=== PATIENT | female | born 1965 | race Caucasian/White ===

== ENCOUNTER 2019-06-21 20:20 | Inpatient (IN) | payer MEDICAID ==
[~2019-06-21] VITALS: Ht 175.3 cm; Wt 86.4 kg
[~2019-06-21 20:20] MED LIST: ALBU8.5H8 INH; ASPI-1265 PO; BUDE10.22 INH; CARV6.253 PO; DOXY-224 PO; FURO-150 PO; LACT1CAP26 PO; LISI10TA4 PO; POTA10TA36 PO
[2019-06-21] MEDS ORDERED: dexamethasone 4mg tablet PO ONE (20:45)
[2019-06-21] MEDS ORDERED: ipratropium/albuterol 3ml nebule NEB ONE (20:45)
[2019-06-21 20:58] LABS: BASOPHILS # (AUTO) 0.1 X10'3 (0-0.2); BASOPHILS % (AUTO) 1.3 % (0-1); EOSINOPHILS # (AUTO) 0.3 X10'3 (0-0.9); EOSINOPHILS % (AUTO) 2.9 % (0-6); HEMATOCRIT 46.3 % (35.0-45.0); HEMOGLOBIN 15.2 g/dl (12.0-16.0); LYMPHOCYTES # (AUTO) 2.3 X10'3 (1.1-4.8); MEAN CORPUSCULAR HEMOGLOBIN 27.5 PG (27.0-31.0); MEAN CORPUSCULAR HGB CONC 32.9 g/dL (33.0-36.5); MEAN CORPUSCULAR VOLUME 83.6 FL (78-98); MEAN PLATELET VOLUME 8.8 FL (7.4-10.4); MONOCYTES # (AUTO) 0.9 X10'3 (0-0.9); MONOCYTES % (AUTO) 9.2 % (2-12); NEUTROPHILS # (AUTO) 6.3 X10'3 (1.8-7.7); NEUTROPHILS % (AUTO) 63.6 % (42-75); PLATELET COUNT 164 X10'3 (140-440); RED BLOOD COUNT 5.53 X10'6 (4.20-5.60); WHITE BLOOD COUNT 9.9 X10'3 (4.5-11.0)
[2019-06-21] MEDS ORDERED: iohexol 350MG/ML 100ml bottle IV ONE (21:14)
[2019-06-21 21:15] LABS: ALANINE AMINOTRANSFERASE 29 U/L (12-78); ALBUMIN 3.3 G/DL (3.4-5.0); ALKALINE PHOSPHATASE 79 IU/L (46-116); ANION GAP 10 (8-16); ASPARTATE AMINO TRANSFERASE 20 U/L (10-37); BILIRUBIN,TOTAL 0.8 MG/DL (0.1-1.0); BLOOD UREA NITROGEN 27 MG/DL (7-18); BUN/CREATININE RATIO 18.5 (6.6-38.0); CALCIUM 8.7 MG/DL (8.5-10.1); CHLORIDE 107 MMOL/L (99-107); CREATININE 1.46 MG/DL (0.40-0.90); GLUCOSE 117 MG/DL (70-104); SODIUM 140 MMOL/L (135-145); TOTAL CARBON DIOXIDE 23.3 MMOL/L (24-32); TOTAL PROTEIN 6.6 G/DL (6.4-8.2); TROPONIN I < 0.04 NG/ML (0.0-0.05); eGFR 37 ML/MIN
--- NOTE | 2019-06-21 21:15 | NUR ---
Patient informed me she has numbness and weakness in right arm and right leg, and has had difficulty walking today. 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 MD informed, level 2 stroke alert called, patient out to CT
[2019-06-21 21:17] LABS: POTASSIUM 4.1 MMOL/L (3.5-5.1)
[2019-06-21] MEDS ORDERED: aspirin 325mg tablet PO ONE ×2 (21:50→23:45)
[2019-06-21 22:09] LABS: PARTIAL THROMBOPLASTIN TIME 26 SECONDS (22-32)
[2019-06-22] MEDS ORDERED: ASPI-1265 PO (00:16)
[2019-06-22] MEDS ORDERED: POTA10TA15 PO (00:16)
[2019-06-22] MEDS ORDERED: NAPR-1154 PO (00:16)
[2019-06-22] MEDS ORDERED: OXYC20TA55 PO (00:16)
[2019-06-22] MEDS ORDERED: FURO-150 PO (00:16)
[2019-06-22] MEDS ORDERED: LACT1CAP26 PO (00:16)
[2019-06-22] MEDS ORDERED: BUDE10.22 INH (00:16)
[2019-06-22] MEDS ORDERED: LISI-604 PO (00:16)
[2019-06-22] MEDS ORDERED: CARV6.253 PO (00:16)
[2019-06-22] MEDS ORDERED: ALBU8.5H8 INH (00:16)
[2019-06-22] MEDS ORDERED: acetaminophen 325mg tablet PO PRN (01:25)
[2019-06-22] MEDS ORDERED: magnesium 4gm in 100ml NS 100 ML IV PRN (01:25)
[2019-06-22] MEDS ORDERED: magnesium 2GM in 50ml NS 50 ML IV PRN (01:25)
[2019-06-22] MEDS ORDERED: ondansetron/PF 4mg/2ml inj IV PRN (01:25)
[2019-06-22] MEDS ORDERED: potassium Cl 20 mEq SR tablet PO PRN ×2 (01:25)
[2019-06-22] MEDS ORDERED: mag hydrox/Alum hydrox/simeth 30ml oral suspension PO PRN (01:25)
[2019-06-22] MEDS ORDERED: magnesium Cl slow-release 64mg tablet PO PRN (01:25)
[2019-06-22] MEDS ORDERED: docusate sod 100mg capsule PO PRN (01:25)
[2019-06-22] MEDS ORDERED: potassium CL 10mEq/100ml bag 100 ML IV PRN ×2 (01:25)
[2019-06-22] MEDS ORDERED: oxyCODONE IR 5mg (immed. release) tablet PO PRN (01:55)
[2019-06-22] MEDS ORDERED: OXYC-658 PO (01:56)
[2019-06-22 03:00] VITALS: BP 142/92
[2019-06-22] MEDS ORDERED: albuterol 2.5 MG/3 ML nebule NEB SCH (03:00)
[2019-06-22] MEDS: ipratropium/albuterol 3ml nebule NEB SCH ×6 (03:05→23:46)
[2019-06-22 06:00] VITALS: BP 123/86
--- NOTE | 2019-06-22 06:00 | NUR ---
Patient in room PCU 3028. I have received report from Alvarado ROSADO and had the opportunity to ask questions and assume patient care.
[2019-06-22] MEDS: LORazepam 0.5 MG tablet PO PRN (07:16)
[2019-06-22] MEDS: carvedilol 6.25mg tablet PO SCH ×2 (07:18→19:15)
[2019-06-22] MEDS: furosemide 20MG tablet PO SCH (07:18)
[2019-06-22] MEDS: lisinopril 10 MG tablet PO SCH (07:18)
--- NOTE | 2019-06-22 07:30 | NUR ---
Room 3028B Sadia Toscano c/o right leg spasms, Ativan 0.5mg given PO, no labs ordered today, please advise Celena [phone], awaiting call back
[2019-06-22] MEDS: budesonide 0.5mg/2ml UD nebule IH SCH ×2 (07:41→19:42)
[2019-06-22] MEDS ORDERED: budesonide 0.5mg/2ml UD nebule IH SCH (08:00)
--- NOTE | 2019-06-22 08:27 | NUR ---
Second page to Dr Tompkins re:Room 3020B Sadia Toscano Ativan ineffective, c/o cramping in R lateral ankle, crying please call and advise Celena [phone]
[2019-06-22 11:00] VITALS: BP 111/69
--- NOTE | 2019-06-22 14:55 | NUR ---
Page to plc technician re: Room 6773S Sadia Toscano pt has life vest on, instructions? Addendum: 06/22/19 at 1540 by Celena Basilio RN Room 5620V Sadia Toscano per Dr Turner oropeza to do complete MRI without life vest
[2019-06-22 15:00] VITALS: BP 161/99
--- NOTE | 2019-06-22 15:10 | NUR ---
Page to Dr Tompkins re: Room 7473B Sadia Toscano, patient is wearing life vest, per MRI it will have to come off at least 10 minutes, please advise Celena Campos Addendum: 06/22/19 at 1540 by Celena Basilio RN Room 4231Z Sadia Toscano per Dr Turner oropeza to do complete MRI without life vest
--- NOTE | 2019-06-22 16:00 | NUR ---
Social service staff reports patient has turner and prescription medication on her person. technical services assistant staff retrieved turner to take to security for safe storage. 2 prescription inhalers and 56 tablets of Oxycodone counted by myself and charge nurse Lucrecia ROSADO and taken to pharmacy for storage.
[2019-06-22 18:00] VITALS: BP 141/89
--- NOTE | 2019-06-22 18:00 | NUR ---
Problems reprioritized. Patient report given, questions answered & plan of care reviewed with Josephine ROSADO/Sujatha ROSADO.
[2019-06-22] MEDS: oxyCODONE IR 5mg (immed. release) tablet PO PRN (19:03)
[2019-06-22] MEDS: K and/or MAG REPLACEMENT MC SCH (19:39)
[2019-06-22 22:00] VITALS: BP 106/64
[2019-06-23] MEDS: LORazepam 0.5 MG tablet PO PRN (00:09)
--- NOTE | 2019-06-23 00:22 | NUR ---
I reviewed the patient's chart for stroke core measure and noted that patient needs an antiplatelet ordered. She did receive asa in the ER but nothing is ordered as a daily medicine for antiplatelet and since the mri reading shows acute infarct. I discussed this with the charge nurse; Giovanni and the pt's nurse Josephine ROSADO.
[2019-06-23 02:00] VITALS: BP 118/73
[2019-06-23] MEDS: ipratropium/albuterol 3ml nebule NEB SCH ×6 (03:15→23:02)
--- NOTE | 2019-06-23 05:57 | NUR ---
[place] Medication Administration: For this medication-pass time frame, all medication were reviewed, dispensed, administered and documented per hospital policy by Torsten ROSADO. [place] documentation: I have reviewed all interventions, assessments performed and documented by Torsten ROSADO.
[2019-06-23 06:12] LABS: BASOPHILS # (AUTO) 0.1 X10'3 (0-0.2); BASOPHILS % (AUTO) 0.4 % (0-1); EOSINOPHILS % (AUTO) 0.3 % (0-6); HEMATOCRIT 44.2 % (35.0-45.0); HEMOGLOBIN 14.2 g/dl (12.0-16.0); LYMPHOCYTES # (AUTO) 1.7 X10'3 (1.1-4.8); MEAN CORPUSCULAR HEMOGLOBIN 27.4 PG (27.0-31.0); MEAN CORPUSCULAR HGB CONC 32.1 g/dL (33.0-36.5); MEAN CORPUSCULAR VOLUME 85.4 FL (78-98); MEAN PLATELET VOLUME 9.1 FL (7.4-10.4); MONOCYTES # (AUTO) 1.1 X10'3 (0-0.9); MONOCYTES % (AUTO) 7.2 % (2-12); NEUTROPHILS # (AUTO) 12.4 X10'3 (1.8-7.7); NEUTROPHILS % (AUTO) 81.1 % (42-75); PLATELET COUNT 154 X10'3 (140-440); RED BLOOD COUNT 5.18 X10'6 (4.20-5.60); RED CELL DISTRIBUTION WIDTH 16.7 % (11.5-14.5); WHITE BLOOD COUNT 15.3 X10'3 (4.5-11.0)
[2019-06-23 06:34] LABS: ALANINE AMINOTRANSFERASE 24 U/L (12-78); ALBUMIN/GLOBULIN RATIO 0.9 (1.1-1.5); ALKALINE PHOSPHATASE 69 IU/L (46-116); ANION GAP 10 (8-16); ASPARTATE AMINO TRANSFERASE 18 U/L (10-37); BILIRUBIN,TOTAL 0.5 MG/DL (0.1-1.0); BLOOD UREA NITROGEN 30 MG/DL (7-18); BUN/CREATININE RATIO 21.3 (6.6-38.0); CALCIUM 8.7 MG/DL (8.5-10.1); CHLORIDE 103 MMOL/L (99-107); CHOL/HDL RATIO 3.5 (0.00-4.99); CHOLESTEROL 115 MG/DL (0-200); CREATININE 1.41 MG/DL (0.40-0.90); GLUCOSE 125 MG/DL (70-104); HDL CHOLESTEROL 33 MG/DL (35-60); LDL CHOLESTEROL 75 MG/DL (50-100); MAGNESIUM 1.9 MG/DL (1.5-2.4); POTASSIUM 4.7 MMOL/L (3.5-5.1); SODIUM 137 MMOL/L (135-145); TOTAL CARBON DIOXIDE 24.1 MMOL/L (24-32); TOTAL PROTEIN 6.2 G/DL (6.4-8.2); TRIGLYCERIDES 79 MG/DL (20-135); eGFR 39 ML/MIN
--- NOTE | 2019-06-23 06:34 | NUR ---
Problems reprioritized. Patient report given, questions answered & plan of care reviewed with Sol ROSADO.
[2019-06-23 07:00] VITALS: BP 141/94
--- NOTE | 2019-06-23 07:04 | NUR ---
Patient in room PCU 3028. I have received report from ALONZO Burton and had the opportunity to ask questions and assume patient care.
[2019-06-23] MEDS: budesonide 0.5mg/2ml UD nebule IH SCH ×2 (07:11→19:04)
[2019-06-23] MEDS: K and/or MAG REPLACEMENT MC SCH (08:00)
--- NOTE | 2019-06-23 08:21 | NUR ---
Problems reprioritized. Patient report given, questions answered & plan of care reviewed with ALONZO Dallas.
--- NOTE | 2019-06-23 08:21 | NUR ---
Patient in room PCU 3028. I have received report from Sol ROSADO and had the opportunity to ask questions and assume patient care.
[2019-06-23] MEDS ORDERED: aspirin 325mg tablet PO ONE (08:45)
[2019-06-23] MEDS: lisinopril 10 MG tablet PO SCH (10:01)
[2019-06-23] MEDS: carvedilol 6.25mg tablet PO SCH ×2 (10:01→19:18)
[2019-06-23] MEDS: furosemide 20MG tablet PO SCH (10:01)
[2019-06-23 12:00] VITALS: BP 129/78
--- NOTE | 2019-06-23 13:46 | NUR ---
Spoke with Dr Bowles regarding ordering a statin. Order received.
[2019-06-23 16:00] VITALS: BP 120/81
--- NOTE | 2019-06-23 16:30 | NUR ---
Page to Dr Tompkins re: Room 302B Sadia Ruffford 6 beat run of V-tach, asymptomatic up at bedside bathing, please advise Celena [phone]
[2019-06-23 18:00] VITALS: BP_SYST 144; BP_SYST 184; BP_DIAS 78; BP_DIAS 93
--- NOTE | 2019-06-23 18:00 | NUR ---
Problems reprioritized. Patient report given, questions answered & plan of care reviewed with Josephine ROSADO/Sujatha ROSADO.
--- NOTE | 2019-06-23 18:25 | NUR ---
Patient in room PCU 3028B. I have received report from ALONZO Dallas and had the opportunity to ask questions and assume patient care. Will continue to monitor
[2019-06-23] MEDS: oxyCODONE IR 5mg (immed. release) tablet PO PRN (19:19)
[2019-06-23] MEDS: atorvastatin 20mg tablet PO SCH (21:10)
[2019-06-23 22:00] VITALS: BP 122/68
[2019-06-24 02:00] VITALS: BP 141/72
[2019-06-24] MEDS: ipratropium/albuterol 3ml nebule NEB SCH ×6 (02:50→23:15)
[2019-06-24 06:00] VITALS: BP 134/84
--- NOTE | 2019-06-24 06:00 | NUR ---
Patient in room PCU 3028. I have received report from Josephine ROSADO and had the opportunity to ask questions and assume patient care.
--- NOTE | 2019-06-24 06:23 | NUR ---
Problems reprioritized. Patient report given, questions answered & plan of care reviewed with Maddie RN.
[2019-06-24 06:44] LABS: BASOPHILS # (AUTO) 0.1 X10'3 (0-0.2); EOSINOPHILS # (AUTO) 0.3 X10'3 (0-0.9); EOSINOPHILS % (AUTO) 3.2 % (0-6); HEMATOCRIT 43.6 % (35.0-45.0); HEMOGLOBIN 14.2 g/dl (12.0-16.0); LYMPHOCYTES # (AUTO) 2.3 X10'3 (1.1-4.8); LYMPHOCYTES % (AUTO) 23.8 % (21-51); MEAN CORPUSCULAR HEMOGLOBIN 27.4 PG (27.0-31.0); MEAN CORPUSCULAR HGB CONC 32.6 g/dL (33.0-36.5); MEAN CORPUSCULAR VOLUME 84.1 FL (78-98); MEAN PLATELET VOLUME 8.9 FL (7.4-10.4); MONOCYTES # (AUTO) 0.9 X10'3 (0-0.9); MONOCYTES % (AUTO) 8.8 % (2-12); NEUTROPHILS # (AUTO) 6.2 X10'3 (1.8-7.7); NEUTROPHILS % (AUTO) 63.2 % (42-75); PLATELET COUNT 155 X10'3 (140-440); RED BLOOD COUNT 5.18 X10'6 (4.20-5.60); RED CELL DISTRIBUTION WIDTH 16.5 % (11.5-14.5); WHITE BLOOD COUNT 9.8 X10'3 (4.5-11.0)
[2019-06-24 06:54] LABS: ALANINE AMINOTRANSFERASE 23 U/L (12-78); ALBUMIN 2.8 G/DL (3.4-5.0); ALBUMIN/GLOBULIN RATIO 0.9 (1.1-1.5); ALKALINE PHOSPHATASE 62 IU/L (46-116); ANION GAP 8 (8-16); ASPARTATE AMINO TRANSFERASE 10 U/L (10-37); BILIRUBIN,TOTAL 0.4 MG/DL (0.1-1.0); BLOOD UREA NITROGEN 32 MG/DL (7-18); BUN/CREATININE RATIO 27.4 (6.6-38.0); CALCIUM 8.5 MG/DL (8.5-10.1); CHLORIDE 106 MMOL/L (99-107); CREATININE 1.17 MG/DL (0.40-0.90); GLUCOSE 95 MG/DL (70-104); MAGNESIUM 1.9 MG/DL (1.5-2.4); POTASSIUM 4.2 MMOL/L (3.5-5.1); SODIUM 140 MMOL/L (135-145); TOTAL CARBON DIOXIDE 26.3 MMOL/L (24-32); TOTAL PROTEIN 5.9 G/DL (6.4-8.2); eGFR 48 ML/MIN
[2019-06-24] MEDS: budesonide 0.5mg/2ml UD nebule IH SCH ×2 (07:29→19:43)
[2019-06-24] MEDS: K and/or MAG REPLACEMENT MC SCH (08:00)
[2019-06-24] MEDS: citalopram 20mg tablet PO SCH (09:16)
[2019-06-24] MEDS: aspirin 325mg tablet PO SCH (09:16)
[2019-06-24] MEDS: carvedilol 6.25mg tablet PO SCH ×2 (09:18→20:29)
[2019-06-24] MEDS: furosemide 20MG tablet PO SCH (09:18)
[2019-06-24] MEDS: lisinopril 10 MG tablet PO SCH (09:18)
[2019-06-24 11:00] VITALS: BP 129/78
[2019-06-24 15:00] VITALS: BP 126/95
--- NOTE | 2019-06-24 16:40 | NUR ---
Page to Dr Tompkins re:Room 6370B Sadia Toscano had 7 beat run of V-tach, asymptomatic, please advise Celena [phone]
--- NOTE | 2019-06-24 18:54 | NUR ---
Problems reprioritized. Patient report given, questions answered & plan of care reviewed with Alvarado ROSADO.
--- NOTE | 2019-06-24 18:58 | NUR ---
Patient in room U 3025B. I have received report from ALONZO Dallas and had the opportunity to ask questions and assume patient care. Addendum: 06/24/19 at 1900 by Martinez Turner RN Patient in room U 3771B. I have received report from ALONZO Dallas and had the opportunity to ask questions and assume patient care.
[2019-06-24 19:00] VITALS: BP 139/93
[2019-06-24] MEDS: atorvastatin 20mg tablet PO SCH (20:29)
[2019-06-24] MEDS: oxyCODONE IR 5mg (immed. release) tablet PO PRN (20:30)
[2019-06-24 23:00] VITALS: BP 103/45
[2019-06-25] VITALS (7 sets, daily range): BP systolic 136–174; BP diastolic 72–105
[2019-06-25] MEDS: ipratropium/albuterol 3ml nebule NEB SCH ×6 (03:05→22:54)
--- NOTE | 2019-06-25 06:00 | NUR ---
Patient in room PCU 3028. I have received report from Alvarado ROSADO and had the opportunity to ask questions and assume patient care.
[2019-06-25 06:21] LABS: BASOPHILS # (AUTO) 0.1 X10'3 (0-0.2); BASOPHILS % (AUTO) 0.9 % (0-1); EOSINOPHILS # (AUTO) 0.5 X10'3 (0-0.9); EOSINOPHILS % (AUTO) 5.4 % (0-6); HEMATOCRIT 45.2 % (35.0-45.0); HEMOGLOBIN 14.6 g/dl (12.0-16.0); LYMPHOCYTES % (AUTO) 21.2 % (21-51); MEAN CORPUSCULAR HEMOGLOBIN 27.3 PG (27.0-31.0); MEAN CORPUSCULAR HGB CONC 32.4 g/dL (33.0-36.5); MEAN CORPUSCULAR VOLUME 84.1 FL (78-98); MEAN PLATELET VOLUME 8.8 FL (7.4-10.4); MONOCYTES # (AUTO) 0.9 X10'3 (0-0.9); MONOCYTES % (AUTO) 10.1 % (2-12); NEUTROPHILS # (AUTO) 5.8 X10'3 (1.8-7.7); NEUTROPHILS % (AUTO) 62.4 % (42-75); PLATELET COUNT 161 X10'3 (140-440); RED BLOOD COUNT 5.37 X10'6 (4.20-5.60); RED CELL DISTRIBUTION WIDTH 16.5 % (11.5-14.5); WHITE BLOOD COUNT 9.3 X10'3 (4.5-11.0)
[2019-06-25 06:23] LABS: ALANINE AMINOTRANSFERASE 24 U/L (12-78); ALBUMIN 2.9 G/DL (3.4-5.0); ALBUMIN/GLOBULIN RATIO 0.9 (1.1-1.5); ALKALINE PHOSPHATASE 70 IU/L (46-116); ANION GAP 9 (8-16); ASPARTATE AMINO TRANSFERASE 14 U/L (10-37); BILIRUBIN,TOTAL 0.5 MG/DL (0.1-1.0); BLOOD UREA NITROGEN 31 MG/DL (7-18); BUN/CREATININE RATIO 24.8 (6.6-38.0); CALCIUM 8.6 MG/DL (8.5-10.1); CHLORIDE 107 MMOL/L (99-107); CREATININE 1.25 MG/DL (0.40-0.90); GLUCOSE 115 MG/DL (70-104); MAGNESIUM 1.9 MG/DL (1.5-2.4); POTASSIUM 4.2 MMOL/L (3.5-5.1); SODIUM 142 MMOL/L (135-145); TOTAL CARBON DIOXIDE 26.1 MMOL/L (24-32); TOTAL PROTEIN 6.1 G/DL (6.4-8.2); eGFR 44 ML/MIN
[2019-06-25] MEDS: budesonide 0.5mg/2ml UD nebule IH SCH ×2 (07:43→18:40)
[2019-06-25] MEDS: K and/or MAG REPLACEMENT MC SCH (08:00)
[2019-06-25] MEDS: furosemide 20MG tablet PO SCH (08:47)
[2019-06-25] MEDS: citalopram 20mg tablet PO SCH (08:47)
[2019-06-25] MEDS: lisinopril 10 MG tablet PO SCH (08:47)
[2019-06-25] MEDS: aspirin 325mg tablet PO SCH (08:47)
[2019-06-25] MEDS: carvedilol 6.25mg tablet PO SCH ×2 (08:48→20:31)
--- NOTE | 2019-06-25 18:16 | NUR ---
Patient in room PCU 3028. I have received report from Celena ROSADO and had the opportunity to ask questions and assume patient care.
--- NOTE | 2019-06-25 18:21 | NUR ---
Problems reprioritized. Patient report given, questions answered & plan of care reviewed with Krysten ROSADO.
[2019-06-25] MEDS: atorvastatin 20mg tablet PO SCH (20:30)
[2019-06-25] MEDS: oxyCODONE IR 5mg (immed. release) tablet PO PRN (20:32)
[2019-06-26] MEDS: oxyCODONE IR 5mg (immed. release) tablet PO PRN ×3 (00:11→23:36)
[2019-06-26 02:00] VITALS: BP 146/94
[2019-06-26] MEDS: ipratropium/albuterol 3ml nebule NEB SCH ×6 (02:42→22:37)
[2019-06-26 04:47] LABS: BASOPHILS # (AUTO) 0.1 X10'3 (0-0.2); BASOPHILS % (AUTO) 0.6 % (0-1); EOSINOPHILS # (AUTO) 0.6 X10'3 (0-0.9); EOSINOPHILS % (AUTO) 6.2 % (0-6); HEMATOCRIT 44.6 % (35.0-45.0); HEMOGLOBIN 14.4 g/dl (12.0-16.0); LYMPHOCYTES % (AUTO) 22.3 % (21-51); MEAN CORPUSCULAR HEMOGLOBIN 27.4 PG (27.0-31.0); MEAN CORPUSCULAR HGB CONC 32.4 g/dL (33.0-36.5); MEAN CORPUSCULAR VOLUME 84.7 FL (78-98); MEAN PLATELET VOLUME 8.7 FL (7.4-10.4); NEUTROPHILS # (AUTO) 5.4 X10'3 (1.8-7.7); NEUTROPHILS % (AUTO) 59.9 % (42-75); PLATELET COUNT 148 X10'3 (140-440); RED BLOOD COUNT 5.26 X10'6 (4.20-5.60); RED CELL DISTRIBUTION WIDTH 16.3 % (11.5-14.5); WHITE BLOOD COUNT 9.1 X10'3 (4.5-11.0)
[2019-06-26 05:01] LABS: ALANINE AMINOTRANSFERASE 22 U/L (12-78); ALBUMIN 2.8 G/DL (3.4-5.0); ALBUMIN/GLOBULIN RATIO 0.9 (1.1-1.5); ALKALINE PHOSPHATASE 69 IU/L (46-116); ANION GAP 7 (8-16); ASPARTATE AMINO TRANSFERASE 17 U/L (10-37); BILIRUBIN,TOTAL 0.6 MG/DL (0.1-1.0); BLOOD UREA NITROGEN 26 MG/DL (7-18); BUN/CREATININE RATIO 18.6 (6.6-38.0); CALCIUM 8.6 MG/DL (8.5-10.1); CHLORIDE 105 MMOL/L (99-107); GLUCOSE 129 MG/DL (70-104); MAGNESIUM 1.8 MG/DL (1.5-2.4); POTASSIUM 4.2 MMOL/L (3.5-5.1); SODIUM 141 MMOL/L (135-145); TOTAL CARBON DIOXIDE 29.4 MMOL/L (24-32); TOTAL PROTEIN 5.9 G/DL (6.4-8.2); eGFR 39 ML/MIN
--- NOTE | 2019-06-26 06:11 | NUR ---
Problems reprioritized. Patient report given, questions answered & plan of care reviewed with Raymon ROSADO.
--- NOTE | 2019-06-26 06:11 | NUR ---
Patient in room PCU 3028. I have received report from Krysten ROSADO and had the opportunity to ask questions and assume patient care.
[2019-06-26 06:54] VITALS: BP 142/80
[2019-06-26] MEDS: budesonide 0.5mg/2ml UD nebule IH SCH ×2 (07:08→18:40)
[2019-06-26] MEDS: citalopram 20mg tablet PO SCH (07:26)
[2019-06-26] MEDS: lisinopril 10 MG tablet PO SCH (07:26)
[2019-06-26] MEDS: furosemide 20MG tablet PO SCH (07:27)
[2019-06-26] MEDS: carvedilol 6.25mg tablet PO SCH ×2 (07:27→21:13)
[2019-06-26] MEDS: aspirin 325mg tablet PO SCH (07:30)
[2019-06-26] MEDS: K and/or MAG REPLACEMENT MC SCH (07:31)
--- NOTE | 2019-06-26 10:06 | NUR ---
Initial: Pt admit with acute CVA. 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 Pt s/p BSS 06/[address] recs regular food and thin liquids however pt needs to eat slowly as to not become SOB while eating. Pt currently on heart healthy diet with documented 100% PO intake throughout LOS meeting nutrient needs. LBM 06/25. No edema or wounds. No nutrition diagnosis at this time. Will continue to follow. Recommendations: 1) Continue heart healthy diet 2) Wt per rx Addendum: 06/26/19 at [address] Amended: Links added.
[2019-06-26] MEDS: ALPRAZolam 0.5mg tablet PO PRN (10:25)
[2019-06-26 11:00] VITALS: BP 128/64
[2019-06-26 15:00] VITALS: BP 142/80
--- NOTE | 2019-06-26 18:05 | NUR ---
Patient in room PCU 3028. I have received report from Raymon ROSADO and had the opportunity to ask questions and assume patient care. pt is sleeping and appears in no distress.
--- NOTE | 2019-06-26 18:08 | NUR ---
Problems reprioritized. Patient report given, questions answered & plan of care reviewed with Flo RN.
[2019-06-26 19:00] VITALS: BP 123/75
--- NOTE | 2019-06-26 19:20 | NUR ---
PAGER ID: [phone] MESSAGE: 3028B, Sadia Toscano, kael I have an order for a flutter valve please per RT recommendation, thank you. Flo [phone]
--- NOTE | 2019-06-26 19:40 | NUR ---
PAGER ID: [phone] MESSAGE: 3028B, Sadia Toscano, kael I have an order for a flutter valve please per RT recommendation, thank you. Flo [phone]
[2019-06-26] MEDS: atorvastatin 20mg tablet PO SCH (21:12)
[2019-06-26 23:00] VITALS: BP 144/88
[2019-06-27] VITALS (7 sets, daily range): BP systolic 105–137; BP diastolic 46–88
[2019-06-27] MEDS: ipratropium/albuterol 3ml nebule NEB SCH ×6 (02:29→23:41)
--- NOTE | 2019-06-27 06:05 | NUR ---
Patient in room PCU 3028. I have received report from Flo RN and had the opportunity to ask questions and assume patient care.
--- NOTE | 2019-06-27 06:18 | NUR ---
Problems reprioritized. Patient report given, questions answered & plan of care reviewed with Raymon ROSADO.
[2019-06-27 06:24] LABS: BASOPHILS # (AUTO) 0.1 X10'3 (0-0.2); BASOPHILS % (AUTO) 0.8 % (0-1); EOSINOPHILS # (AUTO) 0.7 X10'3 (0-0.9); EOSINOPHILS % (AUTO) 7.3 % (0-6); HEMATOCRIT 45.9 % (35.0-45.0); HEMOGLOBIN 14.7 g/dl (12.0-16.0); LYMPHOCYTES # (AUTO) 1.7 X10'3 (1.1-4.8); LYMPHOCYTES % (AUTO) 17.8 % (21-51); MEAN CORPUSCULAR HEMOGLOBIN 26.9 PG (27.0-31.0); MEAN CORPUSCULAR VOLUME 84.1 FL (78-98); MEAN PLATELET VOLUME 8.8 FL (7.4-10.4); MONOCYTES # (AUTO) 0.9 X10'3 (0-0.9); MONOCYTES % (AUTO) 9.6 % (2-12); NEUTROPHILS # (AUTO) 6.2 X10'3 (1.8-7.7); NEUTROPHILS % (AUTO) 64.5 % (42-75); PLATELET COUNT 167 X10'3 (140-440); RED BLOOD COUNT 5.46 X10'6 (4.20-5.60); RED CELL DISTRIBUTION WIDTH 16.8 % (11.5-14.5); WHITE BLOOD COUNT 9.6 X10'3 (4.5-11.0)
[2019-06-27 06:33] LABS: ALANINE AMINOTRANSFERASE 22 U/L (12-78); ALBUMIN 2.7 G/DL (3.4-5.0); ALBUMIN/GLOBULIN RATIO 0.8 (1.1-1.5); ALKALINE PHOSPHATASE 73 IU/L (46-116); ANION GAP 9 (8-16); ASPARTATE AMINO TRANSFERASE 11 U/L (10-37); BILIRUBIN,TOTAL 0.4 MG/DL (0.1-1.0); BLOOD UREA NITROGEN 27 MG/DL (7-18); BUN/CREATININE RATIO 24.5 (6.6-38.0); CALCIUM 8.7 MG/DL (8.5-10.1); CHLORIDE 104 MMOL/L (99-107); GLUCOSE 108 MG/DL (70-104); MAGNESIUM 1.9 MG/DL (1.5-2.4); POTASSIUM 4.4 MMOL/L (3.5-5.1); SODIUM 141 MMOL/L (135-145); TOTAL CARBON DIOXIDE 28.4 MMOL/L (24-32); eGFR 51 ML/MIN
[2019-06-27] MEDS: budesonide 0.5mg/2ml UD nebule IH SCH ×2 (06:58→19:31)
[2019-06-27] MEDS: furosemide 20MG tablet PO SCH (07:35)
[2019-06-27] MEDS: carvedilol 6.25mg tablet PO SCH ×2 (07:36→20:11)
[2019-06-27] MEDS: citalopram 20mg tablet PO SCH (07:36)
[2019-06-27] MEDS: aspirin 325mg tablet PO SCH (07:36)
[2019-06-27] MEDS: lisinopril 10 MG tablet PO SCH (07:37)
[2019-06-27] MEDS: K and/or MAG REPLACEMENT MC SCH (07:55)
[2019-06-27] MEDS: oxyCODONE IR 5mg (immed. release) tablet PO PRN (12:50)
--- NOTE | 2019-06-27 18:10 | NUR ---
Problems reprioritized. Patient report given, questions answered & plan of care reviewed with Flo RN.
--- NOTE | 2019-06-27 18:17 | NUR ---
Patient in room PCU 3028. I have received report from Raymon ROSADO and had the opportunity to ask questions and assume patient care.
[2019-06-27] MEDS: atorvastatin 20mg tablet PO SCH (20:11)
[2019-06-27] MEDS: ALPRAZolam 0.5mg tablet PO PRN (21:41)
[2019-06-28] MEDS: oxyCODONE IR 5mg (immed. release) tablet PO PRN ×2 (01:41→16:17)
[2019-06-28 03:00] VITALS: BP 151/83
[2019-06-28] MEDS: ipratropium/albuterol 3ml nebule NEB SCH ×6 (03:00→23:35)
[2019-06-28 06:00] VITALS: BP 110/57
--- NOTE | 2019-06-28 06:17 | NUR ---
Patient in room PCU 3028. I have received report from ALONZO Rossi and had the opportunity to ask questions and assume patient care.
--- NOTE | 2019-06-28 06:19 | NUR ---
Problems reprioritized. Patient report given, questions answered & plan of care reviewed with Sixto ROSADO.
[2019-06-28] MEDS: K and/or MAG REPLACEMENT MC SCH (07:03)
[2019-06-28] MEDS: budesonide 0.5mg/2ml UD nebule IH SCH ×2 (07:14→18:49)
[2019-06-28] MEDS: furosemide 20MG tablet PO SCH (07:24)
[2019-06-28] MEDS: carvedilol 6.25mg tablet PO SCH ×2 (07:24→21:34)
[2019-06-28] MEDS: citalopram 20mg tablet PO SCH (07:24)
[2019-06-28] MEDS: lisinopril 10 MG tablet PO SCH (07:24)
[2019-06-28] MEDS: aspirin 325mg tablet PO SCH (07:34)
[2019-06-28 11:00] VITALS: BP 122/78
[2019-06-28 15:00] VITALS: BP 138/80
[2019-06-28] MEDS: ALPRAZolam 0.5mg tablet PO PRN (16:17)
--- NOTE | 2019-06-28 16:20 | NUR ---
Per primary RN and pt request, pain and anxiety meds administered.
--- NOTE | 2019-06-28 18:05 | NUR ---
Patient in room PCU 3028. I have received report from Sixto ROSADO and had the opportunity to ask questions and assume patient care.
--- NOTE | 2019-06-28 18:07 | NUR ---
Problems reprioritized. Patient report given, questions answered & plan of care reviewed with Flo RN.
[2019-06-28 19:00] VITALS: BP 120/78
[2019-06-28] MEDS: atorvastatin 20mg tablet PO SCH (21:33)
[2019-06-28 23:00] VITALS: BP 124/61
[2019-06-29 02:00] VITALS: BP 126/68
[2019-06-29] MEDS: ipratropium/albuterol 3ml nebule NEB SCH ×7 (03:26→23:11)
[2019-06-29] MEDS: oxyCODONE IR 5mg (immed. release) tablet PO PRN ×2 (04:07→16:24)
--- NOTE | 2019-06-29 06:15 | NUR ---
Patient in room PCU 3028B. I have received report from Flo RN and had the opportunity to ask questions and assume patient care.
--- NOTE | 2019-06-29 06:24 | NUR ---
Problems reprioritized. Patient report given, questions answered & plan of care reviewed with Desiree ROSADO.
[2019-06-29 06:30] VITALS: BP 129/65
[2019-06-29] MEDS: aspirin 325mg tablet PO SCH (07:27)
[2019-06-29] MEDS: carvedilol 6.25mg tablet PO SCH ×2 (07:28→20:01)
[2019-06-29] MEDS: citalopram 20mg tablet PO SCH (07:28)
[2019-06-29] MEDS: lisinopril 10 MG tablet PO SCH (07:28)
[2019-06-29] MEDS: furosemide 20MG tablet PO SCH (07:28)
[2019-06-29] MEDS: K and/or MAG REPLACEMENT MC SCH (07:47)
[2019-06-29] MEDS: budesonide 0.5mg/2ml UD nebule IH SCH ×2 (09:00→19:17)
--- NOTE | 2019-06-29 10:00 | NUR ---
Patient in room PCU 3028. I have received report from Desiree ROSADO and had the opportunity to ask questions and assume patient care.
[2019-06-29 11:00] VITALS: BP 136/78
[2019-06-29 15:00] VITALS: BP 121/78
[2019-06-29] MEDS ORDERED: magnesium hydroxide 30ml (MOM) UD suspension PO PRN (15:05)
[2019-06-29 18:00] VITALS: BP 113/63
--- NOTE | 2019-06-29 18:32 | NUR ---
Problems reprioritized. Patient report given, questions answered & plan of care reviewed with Alvarado ROSADO.
[2019-06-29] MEDS: atorvastatin 20mg tablet PO SCH (20:01)
[2019-06-29 23:00] VITALS: BP 114/67
[2019-06-30 02:00] VITALS: BP 139/78
[2019-06-30] MEDS: ipratropium/albuterol 3ml nebule NEB SCH ×6 (03:07→23:31)
[2019-06-30 06:00] VITALS: BP 165/88
--- NOTE | 2019-06-30 06:05 | NUR ---
Patient in room PCU 3028. I have received report from ALONZO Childers and had the opportunity to ask questions and assume patient care.
[2019-06-30 06:19] LABS: BASOPHILS # (AUTO) 0.1 X10'3 (0-0.2); BASOPHILS % (AUTO) 0.7 % (0-1); EOSINOPHILS # (AUTO) 0.8 X10'3 (0-0.9); EOSINOPHILS % (AUTO) 8.9 % (0-6); HEMATOCRIT 46.9 % (35.0-45.0); HEMOGLOBIN 15.2 g/dl (12.0-16.0); LYMPHOCYTES # (AUTO) 1.8 X10'3 (1.1-4.8); LYMPHOCYTES % (AUTO) 21.6 % (21-51); MEAN CORPUSCULAR HEMOGLOBIN 27.3 PG (27.0-31.0); MEAN CORPUSCULAR HGB CONC 32.5 g/dL (33.0-36.5); MEAN PLATELET VOLUME 8.6 FL (7.4-10.4); MONOCYTES % (AUTO) 12.1 % (2-12); NEUTROPHILS # (AUTO) 4.9 X10'3 (1.8-7.7); NEUTROPHILS % (AUTO) 56.7 % (42-75); PLATELET COUNT 188 X10'3 (140-440); RED BLOOD COUNT 5.59 X10'6 (4.20-5.60); RED CELL DISTRIBUTION WIDTH 16.8 % (11.5-14.5); WHITE BLOOD COUNT 8.6 X10'3 (4.5-11.0)
--- NOTE | 2019-06-30 06:25 | NUR ---
Patient in room PCU 3028. I have received report from ALONZO Childers and had the opportunity to ask questions and assume patient care.
[2019-06-30] MEDS: budesonide 0.5mg/2ml UD nebule IH SCH ×2 (07:20→19:03)
[2019-06-30] MEDS: carvedilol 6.25mg tablet PO SCH ×2 (07:36→20:47)
[2019-06-30] MEDS: lisinopril 10 MG tablet PO SCH (07:36)
[2019-06-30] MEDS: aspirin 325mg tablet PO SCH (07:36)
[2019-06-30] MEDS: furosemide 20MG tablet PO SCH (07:37)
[2019-06-30] MEDS: K and/or MAG REPLACEMENT MC SCH (07:37)
[2019-06-30] MEDS: citalopram 20mg tablet PO SCH (07:37)
[2019-06-30] MEDS: oxyCODONE IR 5mg (immed. release) tablet PO PRN ×2 (09:55→20:49)
[2019-06-30 11:00] VITALS: BP 145/79
--- NOTE | 2019-06-30 13:48 | NUR ---
Sent Dr Bowles: PAGER ID: [phone] MESSAGE: RE: Sadia Toscano [id number]. Charge is wondering if we are still going to discharge pt today. -Brandi [phone] Dr Bowles responded he doesn't think pt is appropriate for discharge yet.
[2019-06-30 15:00] VITALS: BP 124/63
[2019-06-30 18:00] VITALS: BP 158/73
--- NOTE | 2019-06-30 18:46 | NUR ---
Problems reprioritized. Patient report given, questions answered & plan of care reviewed with ALONZO Singer.
[2019-06-30] MEDS: atorvastatin 20mg tablet PO SCH (20:47)
[2019-06-30] MEDS: ALPRAZolam 0.5mg tablet PO PRN (20:55)
[2019-06-30 22:00] VITALS: BP 125/60
[2019-07-01 02:00] VITALS: BP 110/66
[2019-07-01] MEDS: ipratropium/albuterol 3ml nebule NEB SCH ×6 (03:05→22:44)
--- NOTE | 2019-07-01 06:32 | NUR ---
Patient in room PCU 3012. I have received report from Lucrecia ROSADO and had the opportunity to ask questions and assume patient care.
[2019-07-01 07:14] VITALS: BP 113/83
[2019-07-01] MEDS: budesonide 0.5mg/2ml UD nebule IH SCH ×2 (07:26→18:49)
[2019-07-01] MEDS: K and/or MAG REPLACEMENT MC SCH (08:00)
[2019-07-01] MEDS: citalopram 20mg tablet PO SCH (09:06)
[2019-07-01] MEDS: lisinopril 10 MG tablet PO SCH (09:06)
[2019-07-01] MEDS: furosemide 20MG tablet PO SCH (09:06)
[2019-07-01] MEDS: aspirin 325mg tablet PO SCH (09:06)
[2019-07-01] MEDS: carvedilol 6.25mg tablet PO SCH ×2 (09:06→21:04)
[2019-07-01] MEDS: oxyCODONE IR 5mg (immed. release) tablet PO PRN ×2 (09:17→23:58)
[2019-07-01 11:00] VITALS: BP 111/64
[2019-07-01 15:00] VITALS: BP 127/62
--- NOTE | 2019-07-01 16:00 | NUR ---
PAGER ID: [phone] MESSAGE: [place] 2071Dorcas Patino. Patient had PIV removed and looks like it may be infected at the site. Please adviseNicole 0531
[2019-07-01 18:00] VITALS: BP 143/88
--- NOTE | 2019-07-01 18:11 | NUR ---
Problems reprioritized. Patient report given, questions answered & plan of care reviewed with Aracelis ROSADO. Patient stable at transfer of care.
--- NOTE | 2019-07-01 18:21 | NUR ---
Patient in room PCU 3028. I have received report from Nicole ROSADO and had the opportunity to ask questions and assume patient care.
[2019-07-01] MEDS: atorvastatin 20mg tablet PO SCH (21:04)
[2019-07-01 22:00] VITALS: BP 159/88
[2019-07-02 02:00] VITALS: BP 135/63
[2019-07-02] MEDS: ipratropium/albuterol 3ml nebule NEB SCH ×4 (03:16→15:00)
--- NOTE | 2019-07-02 06:03 | NUR ---
Problems reprioritized. Patient report given, questions answered & plan of care reviewed with Nicole ROSADO.
--- NOTE | 2019-07-02 06:38 | NUR ---
Patient in room PCU 3028. I have received report from Aracelis ROSADO and had the opportunity to ask questions and assume patient care.
[2019-07-02 06:42] LABS: BASOPHILS # (AUTO) 0.1 X10'3 (0-0.2); EOSINOPHILS # (AUTO) 0.6 X10'3 (0-0.9); EOSINOPHILS % (AUTO) 6.7 % (0-6); HEMATOCRIT 45.5 % (35.0-45.0); HEMOGLOBIN 14.8 g/dl (12.0-16.0); LYMPHOCYTES # (AUTO) 1.9 X10'3 (1.1-4.8); LYMPHOCYTES % (AUTO) 23.3 % (21-51); MEAN CORPUSCULAR HEMOGLOBIN 27.4 PG (27.0-31.0); MEAN CORPUSCULAR HGB CONC 32.6 g/dL (33.0-36.5); MEAN CORPUSCULAR VOLUME 84.2 FL (78-98); MEAN PLATELET VOLUME 8.6 FL (7.4-10.4); MONOCYTES % (AUTO) 12.2 % (2-12); NEUTROPHILS # (AUTO) 4.8 X10'3 (1.8-7.7); NEUTROPHILS % (AUTO) 56.8 % (42-75); PLATELET COUNT 184 X10'3 (140-440); RED CELL DISTRIBUTION WIDTH 16.5 % (11.5-14.5); WHITE BLOOD COUNT 8.4 X10'3 (4.5-11.0)
[2019-07-02 06:50] VITALS: BP 133/71
[2019-07-02 07:00] LABS: ALANINE AMINOTRANSFERASE 31 U/L (12-78); ALBUMIN 2.6 G/DL (3.4-5.0); ALBUMIN/GLOBULIN RATIO 0.7 (1.1-1.5); ALKALINE PHOSPHATASE 78 IU/L (46-116); ANION GAP 10 (8-16); ASPARTATE AMINO TRANSFERASE 28 U/L (10-37); BILIRUBIN,TOTAL 0.4 MG/DL (0.1-1.0); BLOOD UREA NITROGEN 28 MG/DL (7-18); BUN/CREATININE RATIO 26.7 (6.6-38.0); CALCIUM 8.5 MG/DL (8.5-10.1); CHLORIDE 105 MMOL/L (99-107); CREATININE 1.05 MG/DL (0.40-0.90); GLUCOSE 115 MG/DL (70-104); POTASSIUM 4.5 MMOL/L (3.5-5.1); SODIUM 144 MMOL/L (135-145); TOTAL CARBON DIOXIDE 29.1 MMOL/L (24-32); TOTAL PROTEIN 6.2 G/DL (6.4-8.2); eGFR 54 ML/MIN
[2019-07-02] MEDS: K and/or MAG REPLACEMENT MC SCH (07:43)
[2019-07-02] MEDS: carvedilol 6.25mg tablet PO SCH (07:44)
[2019-07-02] MEDS: citalopram 20mg tablet PO SCH (07:44)
[2019-07-02] MEDS: furosemide 20MG tablet PO SCH (07:44)
[2019-07-02] MEDS: aspirin 325mg tablet PO SCH (07:44)
[2019-07-02] MEDS: lisinopril 10 MG tablet PO SCH (07:45)
[2019-07-02] MEDS: budesonide 0.5mg/2ml UD nebule IH SCH (08:16)
[2019-07-02] MEDS ORDERED: ATOR20TA66 PO (09:52)
[2019-07-02] MEDS ORDERED: CITA-124 PO (09:52)
[2019-07-02] MEDS ORDERED: ASPI-1 PO (09:54)
[2019-07-02] MEDS ORDERED: CARV6.253 PO (09:58)
[2019-07-02 11:00] VITALS: BP 122/68
[2019-07-02] MEDS: oxyCODONE IR 5mg (immed. release) tablet PO PRN (14:15)
--- NOTE | 2019-07-02 14:41 | NUR ---
reassessment: Pt PO 100% meals meeting needs. LBM 07/01. No nutrition concerns at this time. Will continue to monitor. Recommendations: 1) Continue heart healthy diet 2) Wt per rx Addendum: 07/02/19 at [address] Amended: Links added.
[2019-07-02 15:00] VITALS: BP 136/70
--- NOTE | 2019-07-02 16:40 | NUR ---
Patient was discharged at 1630 home. PIV was removed, telemetry was discontinued and all belongings were sent with patient. Patient reviewed discharge packet before signing, and all medications were taken home, and filled by [facility] bedside. Patient was wearing life vest, and left via cab.
== END 2019-07-02 16:52 | disposition home or self-care (01) | DRG 45 ==
LOC: ER 20:20 → PCU 3S 06-22 02:10 → CMPBEDREQ 06-22 02:37
PROVIDERS: ADMIT Family Medicine; ATTEND Family Medicine
PROC: B3251ZZ Computerized Tomography (CT Scan) of Bilateral Common Carotid Arteries using Low Osmolar Contrast (ICD-10-PCS; principal; 2019-06-21)
PROC: B32G1ZZ Computerized Tomography (CT Scan) of Bilateral Vertebral Arteries using Low Osmolar Contrast (ICD-10-PCS; 2019-06-21)
PROC: B3281ZZ Computerized Tomography (CT Scan) of Bilateral Internal Carotid Arteries using Low Osmolar Contrast (ICD-10-PCS; 2019-06-21)
DX: I63.9 Cerebral infarction, unspecified (principal); G81.91 Hemiplegia, unspecified affecting right dominant side; I42.7 Cardiomyopathy due to drug and external agent; I50.22 Chronic systolic (congestive) heart failure; I13.0 Hypertensive heart and chronic kidney disease with heart failure and stage 1 through stage 4 chronic kidney disease, or unspecified chronic kidney disease; J44.1 Chronic obstructive pulmonary disease with (acute) exacerbation; T43.625A Adverse effect of amphetamines, initial encounter; N18.3 Chronic kidney disease, stage 3 (moderate); F41.9 Anxiety disorder, unspecified; Z60.2 Problems related to living alone; F32.9 Major depressive disorder, single episode, unspecified; F15.10 Other stimulant abuse, uncomplicated; E78.5 Hyperlipidemia, unspecified; Z82.49 Family history of ischemic heart disease and other diseases of the circulatory system; Z83.3 Family history of diabetes mellitus; Z87.891 Personal history of nicotine dependence; Z90.5 Acquired absence of kidney; Z79.899 Other long term (current) drug therapy; Z79.82 Long term (current) use of aspirin
CPT/HCPCS: 36415; 70450; 70496; 70498; 70544; 70551; 71045; 80053; 80061; 83735; 84443; 84484; 85025; 85610; 85730; 87040; 87070; 87077; 87081; 87186; 92508; 92616; 93005; 93308; 93880; 94640; 94667; 94668; 94760; 97110; 97112; 97116; 97162; 97530; 99291; G0378; J7626; Q9967